=== PATIENT | female | born 1985 | race Caucasian/White ===

== ENCOUNTER 2020-03-28 18:54 | Inpatient (IN) | payer SELFPAY ==
--- NOTE | 2020-03-28 19:00 | ECG_ITS ---
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 Measurements Intervals [place] Rate: 78 P: 69 CO: 142 QRS: -23 QRSD: 101 T: 48 QT: 375 QTc: 427 Interpretive Statements SINUS RHYTHM BORDERLINE LEFT AXIS DEVIATION [QRS AXIS < -20] INCOMPLETE RIGHT BUNDLE BRANCH BLOCK [90+ ms QRS DURATION, TERMINAL R IN V1/V2, 40+ ms S IN I/aVL/V4/V5/V6] WARNING: DATA QUALITY MAY AFFECT INTERPRETATION No previous ECG available for comparison Electronically Signed On 03-29-2020 20:04:01 SCALES INSPECTOR by Sacha Forde M.D. [id number]
[2020-03-28 19:02] VITALS: BP 158/105; PULSE 100; RESP 18; TEMP 36.4; O2SAT 97; BMI 25.7
--- NOTE | 2020-03-28 19:13 | ED_ITS ---
HPI - Psych General: Chief Complaint: Psychiatric Symptoms Stated Complaint: psych eval/ etoh Time Seen by Provider: 03/28/20 18:59 Source: patient, EMS and police Mode of arrival: EMS Limitations: altered mental status History of Present Illness: HPI Narrative: Jeanette is a nice 34-year-old female who comes in in police custody. The patient apparently was arrested under the suspicion of drunken disorderly conduct but when her information was run by police it was found that she had a warrant for a missing person report in [place]. The number listed there was contacted and apparently the patient is to be under a 60 to 90-day commitment for psychiatric and substance abuse problems. Patient was released under provisions but violated those provisions and a missing person report has been filed since October. Here the patient appears to be psychotic stating that she can talk to wrappers and do so mentally. Patient denies any homicidal or suicidal ideation. Review of Systems General: Reports: ROS unobtainable due to mental status PFS ED PFSH: Medical History (Updated 03/28/20 @ 21:15 by Dalia Lewis) Bipolar disorder Female Reproductive History: Date of last menstrual period: 03/28/20 Physical Exam Const: COMMON NORMALS: no acute distress, patient oriented x3, no limitations and alert GENERAL APPEARANCE: cooperative HENMT: COMMON NORMALS: normocephalic, atraumatic, external ears normal, EAC's normal and Normal external nose present HEAD & SCALP: normal to inspection, normocephalic and atraumatic FACE & SINUS: normal facial exam and face symmetric NOSE: Normal external nose present and Normal nares present EX TERNAL EAR: Yes external ears normal EXTERNAL AUDITORY CANAL: EAC's normal MOUTH: Normal oral and palatal mucosa present, lip normal and tongue normal Eye: COMMON NORMALS: Equal, round and reactive pupils present and conjunctivae normal GENERAL EYE: appearance normal, both eyes and all related structures ALIGNMENT: Yes alignment normal PERIORBITAL: periorbital findings normal EYELID: eyelids normal CONJUNCTIVA: Yes conjunctivae normal SCLERA: sclerae normal PUPIL: Yes Equal, round and reactive pupils present Neck/C-Spine: COMMON NORMALS: full ROM, no lymphadenopathy, supple, no meningeal signs and no JVD GENERAL: Yes normal visual inspection and Yes trachea midline Chest: COMMONS NORMALS: normal inspection of the chest and normal palpation of entire chest wall Resp: COMMON NORMALS: normal respiratory effort, No retractions, No use of accessory muscles and clear to auscultation bilaterally EFFORT & INSPECTION: Yes able to speak in complete sentences and Yes symmetric chest movement AUSCULTATION: clear to auscultation bilaterally, no crackles, no rales, no rhonchi and no wheezes Cardio: COMMON NORMALS: no JVD, regular rate, regular rhythm, S1 normal heart sound present and S2 normal heart sound present RATE: regular rate RHYTHM: regular rhythm HEART SOUNDS: S1 normal heart sound present, S2 normal heart sound present, no click, no gallops, no murmurs and no rubs GI: COMMON NORMALS: Soft to palpation and No hepatosplenomegaly present PALPATION: Yes Soft to palpation, No Tenderness to palpation present (GI), No Guarding due to palpation present (GI), No Rigid due to palpation, Yes No hepatosplenomegaly present, No Hernia present, No Palpable mass present and No Pulsatile mass present : COMMON NORMALS: Yes no CVA tenderness BLADDER/KIDNEY EXAM: Yes no CVA tenderness EXTERNAL FEMALE EXAM: No Hernia present Back/Pelvis: COMMON NORMALS: no CVA tenderness, thoracic and lumbar spine normal to inspection, no thoracic nor lumbar tenderness and thoraco-lumbar ROM normal Extremity: COMMON NORMALS: normal to inspection, full ROM, capillary refill normal, no joint enlargement, no clubbing, cyanosis or edema and no calf tenderness Neuro: COMMON NORMALS: patient oriented x3, CN's II-XII intact bilaterally, moves all extremities, no focal motor deficits and no sensory deficits noted SENSORIUM/ORIENTATION: Yes alert MENINGEAL SIGNS: Yes no meningeal signs SPEECH: speech normal Psych: COMMON NORMALS: mental status grossly normal, Normal thought process present, cooperative, normal affect, speech normal and activity/motor behavior normal SPEECH: Yes normal speech THOUGHT PROCESS: Normal thought process present Skin: COMMON NORMALS: no rashes or lesions noted, turgor normal, no jaundice, no petechiae and no mottling GENERAL SKIN EXAM: no rashes or lesions noted and turgor normal MDM - Psych MDM Narrative: Medical decision making narrative: The case was reviewed with Dr. Ly, he agrees to 96-hour hold here for acute psychosis and he will work with [facility] to see about where the patient needs to go from [facility]. Lab Data: Labs: Lab Results 03/28/20 03/28/20 03/28/20 Range/Units 19:15 20:09 20:09 WBC 5.9 (4.0-10.0) 10^3/ uL RBC 4.80 (4.1-5.3) 10^6/u L Hgb 15.3 (11.5-15.3) g/dL Hct 47.9 H (37.0-47.0) % MCV 99.8 H (81-99) fL MCH 31.9 (28.0-34.0) pg MCHC 31.9 (30.0-36.0) g/dL RDW 12.6 (12.1-15.1) % Plt Count 328 (130-400) 10^3/c mm MPV 8.0 (7.4-10.4) fL Neut % (Auto) 59.5 % Lymph % (Auto) 29.4 % [place] % (Auto) 5.7 % Eos % (Auto) 4.1 % Baso % (Auto) 1.0 % Neut # (Auto) 3.52 (1.8-7.7) 10^3/u L Lymph # (Auto) 1.7 (0.8-4.8) 10^3/u L [place] # (Auto) 0.3 (0.2-0.9) 10^3/u L Eos # (Auto) 0.2 (0.0-0.8) 10^3/u L Baso # (Auto) 0.1 (0.0-0.1) 10^3/u L Nucleated RBC % (a uto) 0 % Nucleated RBCs # 0.0 /100WBC Sodium 142 (136-145) mmol/L Potassium 3.7 (3.5-5.1) mmol/L Chloride 104 (98-107) mmol/L Carbon Dioxide 29 (22-29) mmol/L Anion Gap 12.7 (5-19) BUN 9 (6-20) mg/dL Creatinine 0.8 (0.5-0.9) mg/dL GFR Calculation 81.2 L (90-130) mL/min Glucose 105 (65-115) mg/dL Calculated Osmolal ity 293 (285-295) mOsm/k g Calcium 8.8 (8.5-10.5) mg/dL Total Bilirubin 0.2 (0.15-1.2) mg/dL AST 30 (0-32) U/L ALT 28 (0-33) U/L Alkaline Phosphata se 89 (35-105) IU/L Total Protein 7.0 (6.6-8.7) g/dL Albumin 4.5 (3.5-5.2) g/dL Globulin 2.5 (1.3-4.6) g/dL HCG, Qual Negative (Negative) Salicylates < 0.3 L (3-10) mg/dL Acetaminophen < 5.0 L (10-30) ug/mL Ethyl Alcohol 194 H (0-10) mg/dL Discharge Plan Discharge Patient Disposition: Admitted As Inpatient Clinical Impression: Acute psychosis, Alcohol intoxication Condition: Stable Coding Level of Care Code ED City Alderman for Edwige Veliz
[2020-03-28 19:22] LABS: HCG Qualitative Urine. Negative (Negative)
[2020-03-28 20:28] LABS: Basophils # 0.1 10^3/uL (0.0-0.1); Eosinophils # 0.2 10^3/uL (0.0-0.8); Eosinophils % 4.1 %; Hematocrit 47.9 % (37.0-47.0); Hemoglobin 15.3 g/dL (11.5-15.3); Lymphocytes # 1.7 10^3/uL (0.8-4.8); Lymphocytes % 29.4 %; Mean Corpuscular HGB Conc 31.9 g/dL (30.0-36.0); Mean Corpuscular Hemoglobin 31.9 pg (28.0-34.0); Mean Corpuscular Volume 99.8 fL (81-99); Monocytes # 0.3 10^3/uL (0.2-0.9); Monocytes % 5.7 %; Neutrophils # 3.52 10^3/uL (1.8-7.7); Neutrophils % 59.5 %; Nucleated Red Blood Cells % 0 %; Platelet Count 328 10^3/cmm (130-400); Red Cell Distribution Width 12.6 % (12.1-15.1); White Blood Count 5.9 10^3/uL (4.0-10.0)
[2020-03-28 20:43] LABS: Alanine Aminotransferase 28 U/L (0-33); Albumin Level 4.5 g/dL (3.5-5.2); Alcohol Level 194 mg/dL (0-10); Alkaline Phosphatase 89 IU/L (35-105); Anion Gap 12.7 (5-19); Aspartate Amino Transferase 30 U/L (0-32); Blood Urea Nitrogen 9 mg/dL (6-20); Calcium 8.8 mg/dL (8.5-10.5); Carbon Dioxide 29 mmol/L (22-29); Chloride 104 mmol/L (98-107); Globulin 2.5 g/dL (1.3-4.6); Glomerular Filtration Rate 81.2 mL/min (90-130); Glucose 105 mg/dL (65-115); Osmolality Calculated 293 mOsm/kg (285-295); Potassium 3.7 mmol/L (3.5-5.1); Sodium 142 mmol/L (136-145); Total Bilirubin 0.2 mg/dL (0.15-1.2)
[2020-03-28 20:47] LABS: Acetaminophen < 5.0 ug/mL (10-30); Salicylate < 0.3 mg/dL (3-10)
[2020-03-28 21:39] LABS: Amphetamines Screen Urine Positive (Negative); Barbiturates Screen Urine Negative (Negative); Benzodiazepines Screen Urine Negative (Negative); Cocaine Screen Urine Negative (Negative); Opiate Screen Urine Negative (Negative); PCP Screen Urine Negative (Negative); THC Screen Urine Negative (Negative)
[2020-03-28 22:59] VITALS: BP 114/77; PULSE 80; RESP 16; O2SAT 96
[2020-03-28] MEDS: acetaminophen 500 mg Tablet 1000 MG PO (23:37)
[2020-03-29] VITALS: BP 107/67; PULSE 104; RESP 17; TEMP 36.8; O2SAT 91
[2020-03-29 00:36] VITALS: BP 107/67; PULSE 104; RESP 17; TEMP 36.8; O2SAT 91
[2020-03-29 05:28] VITALS: BP 119/88; PULSE 82; RESP 17; TEMP 36.9; O2SAT 96
[2020-03-29 13:39] VITALS: BP 141/86; PULSE 98; RESP 18; TEMP 36.9; O2SAT 97
--- NOTE | 2020-03-29 15:22 | PM.NHP ---
Providers/Chief Complaint Admitting Physician: Israel Ly MD Chief Complaint: psych eval/ etoh HPI NPU History of Present Illness Jeanette Olvera is a 34 year old female who presented to the emergency department with the following report: Chief Complaint: Psychiatric Symptoms Stated Complaint: psych eval/ etoh Time Seen by Provider: 03/28/20 18:59 Source: patient, EMS and police Mode of arrival: EMS Limitations: altered mental status History of Present Illness: HPI Narrative: Jeanette is a nice 34-year-old female who comes in in police custody. The patient apparently was arrested under the suspicion of drunken disorderly conduct but when her information was run by police it was found that she had a warrant for a missing person report in [place]. The number listed there was contacted and apparently the patient is to be under a 60 to 90-day commitment for psychiatric and substance abuse problems. Patient was released under provisions but violated those provisions and a missing person report has been filed since October. Here the patient appears to be psychotic stating that she can talk to wrappers and do so mentally. Patient denies any homicidal or suicidal ideation. She was admitted to the neuropsychiatric unit for definitive treatment of those issues. She reported today clearly has a fairly resistant historian with is feeling fairly clear that her goal was to be discharged and so she seemed to be hedging on pieces of information especially given the fact that her UDS was undeniable. Her report is that she is in town and happened to find herself drinking with a group of people that she does not know very well. Her report is that she is not a heavy drinker, but does happen to be a heavy drinker this night. She reports that a conflict arose because she had started her menses and was bleeding but did not want to come out and say that that was the fact. She was attempting to get somewhere without saying why she needed to get there and that reportedly started a conflict that ultimately concluded per her and her getting kicked out of the vehicle. She then reports that the police approached her, identified who she was, identified this question of a missing persons report on her from [place] law enforcement which she attributes to some person in [place] trying to ruin her life by getting her names and things that they are not involved in. The authorities have no interest in expedition or anything of that nature so that is a nonissue in relation to managing her during the stay. Does endorse past psychiatric hospitalization probably starting back when she was 14-16. She reports she has had hospitalizations maybe 3 times otherwise before this. She endorses having 2 to 3 cigarettes a day, not drinking alcohol often, not using marijuana, cocaine methamphetamine or opiates. She reports she is never been to a rehab and has had 1 history of a DUI. She had no explanation for her UDS being positive for amphetamines though acknowledges the BAL would be elevated like it was at 194. She reports having a suicide attempt a long time ago but denied any need or desire for mental health, addiction or other treatment at this time. Psychiatric history: As above. Substance abuse history: As above. Family history: She denied significant mental health, addiction or suicide attempts or completions in her family. Developmental history: She denies issues with gestation, /delivery, reports she learned to walk and talk and met her developmental milestones on time, and denies speech therapy, learning support, emotional support or special education classes during school. Psychosocial history: She reports that her mother and father were together and stayed together for much of their lives. She will have children together of which she was the third. Her mother had no other children other than those for her father had 1 other child that is her half sibling. She reports her childhood was normal and denied emotional, physical or sexual abuse then or during her life. She reports she graduated from high school but had no additional training. She endorses being a heterosexual with her longest relationship being 8 years. She reports has been twice and once, that she has an 18-year-old and a 19-year-old child, she is never been in the as he believes in God. She reports her longest work history was at [employer] for maybe 8 years. She currently lives in a trailer with her boyfriend and a female friend of his. Legal history: She has been in retirement maybe 5 times a longest time was for about 2 months. Medical history: She denies significant medical issues. Meds NPU Home Medications Medication Instructions Recorded Confirmed Last Taken Type Unable to Assess 03/28/20 03/29/20 Unknown History Allergies Allergy/AdvReac Type Severity Reaction Status Date / Time No Known Allergies Allergy Verified 03/29/20 01:01 ON LICENSE OF [facility] NPU ON LICENSE OF [facility]: Medical History (Updated 03/28/20 @ 21:15 by Dalia Lewis) Bipolar disorder Mental Status Exam MSE Comments: This is an overweight white female disheveled/unkempt in hospital scrubs with adequate eye contact. No abnormal movements except for psychomotor retardation. Cooperative with exam in mild distress. Speech was normal rate and volume with her voice being a bit gravelly. Mood described as okay affect slightly subdued. Thought process organized. Thought content: Patient denied suicidal or homicidal ideations, there were no delusions reported or noted, she denied any auditory or visual hallucinations. Attention and concentration appeared intact and memory was mostly reliable, but none were formally tested. She is alert and oriented x3. Insight and judgment are limited impulse control is impaired. Vitals/I&O/Wt Last Vital Signs Temp 98.5 F 03/29/20 20:05 Pulse 65 03/29/20 20:05 Resp 18 03/29/20 20:05 BP 147/92 03/29/20 20:05 Pulse Ox 97 03/29/20 20:05 Weight last 48 hrs Weight 65.771 kg Data NPU : 03/28/20 20:09 03/28/20 20:09 A&P Assessment and plan (1) Acute psychosis: Status: Acute (2) Alcohol intoxication: Status: Acute Qualifiers: Complication of substance-induced condition: with delirium Qualified Code(s): F10.921 - Alcohol use, unspecified with intoxication delirium (3) Bipolar disorder: Status: Acute Additional A&P Information Jeanette presents today in acute alcohol intoxication with additional substances on board reporting a history of mental health issues which are not currently being treated but she denies any desire to initiate medication or stay for any care. 1. Continue current medication. We will encourage resumption of previously successful medications. 2. Continue every 15 minute checks for safety. 3. Encourage individual, group and milieu therapy. 4. Encourage sober living follow-up at the highest level of care to which she is willing to commit. 5. Per the 96-hour hold we will evaluate for the safety to discharge. Involuntary Hold Information 96 Hour Hold: 96 Hour Involuntary Admission: Yes 96 Hour Hold Ending Date: 05/03/20 96 Hour Hold Ending Time: 22:44 Attestations NPU Medical Necessity Statement*: Inpatient hospitalization is medically necessary and the clinically appropriate intervention at this time. We will monitor medications and make changes as indicated. She will be in the hospital for over 2 midnights. Likely length of stay 2 to 4 days. Coding Level of Care Code Acute Ornamenter Hand for Edwige Fwd Diagnoses Acute psychosis F23 Alcohol intoxication F10.921 Complication of substance-induced condition: with delirium Bipolar disorder F31.9
[2020-03-29 20:05] VITALS: BP 147/92; PULSE 65; RESP 18; TEMP 36.9; O2SAT 97
[2020-03-30 06:00] VITALS: BP 148/89; PULSE 56; RESP 15; TEMP 36.8; O2SAT 97
[2020-03-30 13:40] VITALS: BP 121/85; PULSE 78; RESP 18; TEMP 36.9; O2SAT 95
--- NOTE | 2020-03-30 13:45 | PM.NPN ---
Subjective NPU Subjective: Interval history: Jeanette presents today reporting that she continues to not be interested in treatment and wanting to be discharged as soon as possible. She reports that her significant other and daughter are both supportive of the idea of her getting out soon. She gave me numbers where I can reach them and we discussed considering discharge in the next 48 hours. Mental Status Exam MSE Comments: This is an overweight white female disheveled/unkempt in hospital scrubs with adequate eye contact. No abnormal movements except for psychomotor retardation. Cooperative with exam in mild distress. Speech was normal rate and volume with her voice being a bit gravelly. Mood described as better/I would like to go home affect slightly subdued. Thought process organized. Thought content: Patient denied suicidal or homicidal ideations, there were no delusions reported or noted, she denied any auditory or visual hallucinations. Attention and concentration appeared intact and memory was mostly reliable, but none were formally tested. She is alert and oriented x3. Insight and judgment are limited, but improving, impulse control is impaired. Vitals/I&O/Wt Last Vital Signs Temp 98.5 F 03/30/20 13:40 Pulse 78 03/30/20 13:40 Resp 18 03/30/20 13:40 BP 121/85 03/30/20 13:40 Pulse Ox 95 03/30/20 13:40 Weight last 48 hrs Weight 65.771 kg Data NPU : 03/28/20 20:09 03/28/20 20:09 A&P Additional A&P Information (1) Acute psychosis: (2) Alcohol intoxication: (3) Bipolar disorder: Jeanette presents today in acute alcohol intoxication with additional substances on board reporting a history of mental health issues which are not currently being treated but she denies any desire to initiate medication or stay for any care. 1. Continue current medication. We will encourage resumption of previously successful medications. 2. Continue every 15 minute checks for safety. 3. Encourage individual, group and milieu therapy. 4. Encourage sober living follow-up at the highest level of care to which she is willing to commit. 5. Per the 96-hour hold we will evaluate for the safety to discharge. Involuntary Hold Information 96 Hour Hold: 96 Hour Involuntary Admission: Yes 96 Hour Hold Ending Date: 05/03/20 96 Hour Hold Ending Time: 22:44 Attestations NPU Medical Necessity Statement*: Inpatient hospitalization is medically necessary and the clinically appropriate intervention at this time. We will monitor medications and make changes as indicated. Likely length of stay 1-3 days. Coding Level of Care Code Acute Cash Register Operator for Edwige Veliz
[2020-03-30 20:12] VITALS: BP 152/96; PULSE 58; RESP 16; TEMP 37.1; O2SAT 98
[2020-03-31 06:00] VITALS: BP 115/83; PULSE 76; RESP 17; TEMP 36.7; O2SAT 96
--- NOTE | 2020-03-31 11:25 | PM.NDC ---
Diagnoses at Discharge Discharge Diagnosis (1) Acute psychosis: Status: Resolved (2) Alcohol intoxication: Status: Resolved Qualifiers: Complication of substance-induced condition: with delirium Qualified Code(s): F10.921 - Alcohol use, unspecified with intoxication delirium (3) Bipolar disorder: Status: Acute Reason for Visit Reason for Visit: psych eval/ etoh Brief History: History of Present Illness Jeanette Olvera is a 34 year old female who presented to the emergency department with the following report: Chief Complaint: Psychiatric Symptoms Stated Complaint: psych eval/ etoh Time Seen by Provider: 03/28/20 18:59 Source: patient, EMS and police Mode of arrival: EMS Limitations: altered mental status History of Present Illness: HPI Narrative: Jeanette is a nice 34-year-old female who comes in in police custody. The patient apparently was arrested under the suspicion of drunken disorderly conduct but when her information was run by police it was found that she had a warrant for a missing person report in [place]. The number listed there was contacted and apparently the patient is to be under a 60 to 90-day commitment for psychiatric and substance abuse problems. Patient was released under provisions but violated those provisions and a missing person report has been filed since October. Here the patient appears to be psychotic stating that she can talk to wrappers and do so mentally. Patient denies any homicidal or suicidal ideation. She was admitted to the neuropsychiatric unit for definitive treatment of those issues. She reported today clearly has a fairly resistant historian with is feeling fairly clear that her goal was to be discharged and so she seemed to be hedging on pieces of information especially given the fact that her UDS was undeniable. Her report is that she is in town and happened to find herself drinking with a group of people that she does not know very well. Her report is that she is not a heavy drinker, but does happen to be a heavy drinker this night. She reports that a conflict arose because she had started her menses and was bleeding but did not want to come out and say that that was the fact. She was attempting to get somewhere without saying why she needed to get there and that reportedly started a conflict that ultimately concluded per her and her getting kicked out of the vehicle. She then reports that the police approached her, identified who she was, identified this question of a missing persons report on her from [place] law enforcement which she attributes to some person in [place] trying to ruin her life by getting her names and things that they are not involved in. The authorities have no interest in expedition or anything of that nature so that is a nonissue in relation to managing her during the stay. Does endorse past psychiatric hospitalization probably starting back when she was 14-16. She reports she has had hospitalizations maybe 3 times otherwise before this. She endorses having 2 to 3 cigarettes a day, not drinking alcohol often, not using marijuana, cocaine methamphetamine or opiates. She reports she is never been to a rehab and has had 1 history of a DUI. She had no explanation for her UDS being positive for amphetamines though acknowledges the BAL would be elevated like it was at 194. She reports having a suicide attempt a long time ago but denied any need or desire for mental health, addiction or other treatment at this time. Psychiatric history: As above. Substance abuse history: As above. Family history: She denied significant mental health, addiction or suicide attempts or completions in her family. Developmental history: She denies issues with gestation, /delivery, reports she learned to walk and talk and met her developmental milestones on time, and denies speech therapy, learning support, emotional support or special education classes during school. Psychosocial history: She reports that her mother and father were together and stayed together for much of their lives. She will have children together of which she was the third. Her mother had no other children other than those for her father had 1 other child that is her half sibling. She reports her childhood was normal and denied emotional, physical or sexual abuse then or during her life. She reports she graduated from high school but had no additional training. She endorses being a heterosexual with her longest relationship being 8 years. She reports has been twice and once, that she has an 18-year-old and a 19-year-old child, she is never been in the as he believes in God. She reports her longest work history was at [employer] for maybe 8 years. She currently lives in a trailer with her boyfriend and a female friend of his. Legal history: She has been in correction maybe 5 times a longest time was for about 2 months. Medical history: She denies significant medical issues. Hospital Course Hospital Course Jeanette presented to the emergency department intoxicated with police involvement and concerns about her being a missing person from [place] versus a person of interest from [place] she was on a 96-hour hold and was admitted to the psychiatric unit for definitive treatment of those issues. On the unit she identified that she had drank too much and acted out of sorts but endorsed that she did that for good reason/self-preservation. She denied need for psychiatric services currently and expressed a desire to be discharged as soon as she could be. She slowly acclimated to the individual, groups and milieu therapy. We continue to evaluate her and do due diligence to identify any need for inpatient psychiatric services or concerns for lethality. She continued to contract for safety and allowed for free communication with her daughter and her boyfriend with whom she is down in this area with. During hospitalization she had a routine laboratory studies which were within normal limits except for few outliers. Additionally she had a general medical evaluation was also within normal limits and revealed no new acute processes. Discharge summary: At the time of discharge she was absent lethality or psychosis. Her mood and anxiety were well managed. She endorsed a plan to avoid all drugs of abuse but denied need for any outpatient follow-up. She was evaluated and deemed to be absent credible lethality and had achieved a maximum benefit from an inpatient hospitalization given her lack of desire for treatment and our desire to evaluate for her for safety, so she was discharged. Involuntary Hold Information 96 Hour Hold: 96 Hour Involuntary Admission: Yes 96 Hour Hold Ending Date: 05/03/20 96 Hour Hold Ending Time: 22:44 Mental Status Exam MSE Comments: This is an overweight white female disheveled/unkempt in hospital scrubs with adequate eye contact. No abnormal movements. Cooperative with exam in no acute distress. Speech was normal rate and volume with her voice being a bit gravelly. Mood described as pretty good affect congruent. Thought process organized. Thought content: Patient denied suicidal or homicidal ideations, there were no delusions reported or noted, she denied any auditory or visual hallucinations. Attention and concentration appeared intact and memory was mostly reliable, but none were formally tested. She is alert and oriented x3. Insight and judgment are improving, impulse control is improving. Discharge Data Vitals: Last Vital Signs Temp 98.0 F 03/31/20 06:00 Pulse 76 03/31/20 06:00 Resp 17 03/31/20 06:00 BP 115/83 03/31/20 06:00 Pulse Ox 96 03/31/20 06:00 Discharge Plan Discharge Patient Disposition: Home Condition: Stable Prescriptions: Continued Unable to Assess RF: 0 Discharge Orders: Discharge Order (Routine); Ordered 03/31/20 Ordered By: Israel Ly Discharge Diet: Regular Discharge Activity: Resume usual activity Discharge Attestations NPU Time Spent in Discharge Care*: less than 30 min Specific Discharge Activities: Specific discharge activities: educating patient, discussing with case assembler/social workers/dc planners, documenting/other paperwork and evaluating patient/reviewing data Coding Level of Care Code Acute Promotion Writer for g Fwd Diagnoses Acute psychosis F23 Alcohol intoxication F10.921 Complication of substance-induced condition: with delirium Bipolar disorder F31.9
[2020-03-31 12:04] VITALS: BP 115/83; PULSE 76; RESP 17; TEMP 36.7; O2SAT 96
== END 2020-03-31 12:53 | disposition home or self-care (01) | DRG 885 ==
LOC: ER 21:25 → NP 22:42
PROVIDERS: Emergency Medicine; Admitting Provider Psychiatry & Neurology Psychiatry; Emergency Provider Emergency Medicine; Visit Provider Psychiatry & Neurology Psychiatry
DX: F23 Brief psychotic disorder (principal); F10.921 Alcohol use, unspecified with intoxication delirium; F31.9 Bipolar disorder, unspecified; Y90.6 Blood alcohol level of 120-199 mg/100 ml; Z91.5 Personal history of self-harm; F17.210 Nicotine dependence, cigarettes, uncomplicated
CPT/HCPCS: 12345; 80053; 80306; 80307; 81025; 85025; 93005; 99284